=== PATIENT | female | born 1995 | race Caucasian/White ===

== ENCOUNTER 2019-03-01 23:29 | Emergency (ER) | payer OTHER ==
[2019-03-02] MEDS ORDERED: SODIUM CHLORIDE 1,000 ML IV STA (00:27)
[2019-03-02 00:36] VITALS: BP 121/80; PULSE 95; TEMP 98.5; BMI 34.4
[2019-03-02] MEDS ORDERED: ONDANSETRON 4 MG/2 ML VIAL IVPUSH ONE (00:46)
--- NOTE | 2019-03-02 00:54 | PDOC ---
Documentation entered by Jessica Sams SCRIBE, acting as scribe for Jennifer Abrams MD. Jennifer Abrams MD: This documentation has been prepared by the Latrell hu Xhesika, SCRIBE, under my direction and personally reviewed by me in its entirety. I confirm that the documentation accurately reflects all work, treatment, procedures, and medical decision making performed by me. History of Present Illness - General Chief Complaint: Nausea/Vomiting Stated Complaint: VOMITTING Time Seen by Provider: 03/02/19 00:16 History Source: Patient Exam Limitations: No Limitations - History of Present Illness Initial Comments: 03/02/19 00:30 The patient is a 23 year old female with no significant PMH of who presents to the emergency department for nausea, vomiting, diarrhea, and epigastric discomfort. The patient states she had 2 episodes of diarrhea earlier today, went to school at night, felt nauseous and endorsed 5 episodes of nbnb emesis. Patient notes she is on control and is currently on her menstrual period. The patient denies chest pain, shortness of breath, headache and dizziness. Denies fever, chills, cough, and constipation. Denies dysuria, frequency, urgency and hematuria. Allergies: NKDA Past History - Past Medical History Allergies/Adverse Reactions: Allergies Allergy/AdvReac Type Severity Reaction Status Date / Time No Known Allergies Allergy Verified 03/02/19 00:25 Home Medications: Ambulatory Orders Ondansetron [Zofran *Odt*] 4 mg SL TID PRN #21 od.tablet MDD 3 tabs 03/02/19 CVA: No COPD: No DVT: No - Psycho Social/Smoking Cessation Hx Smoking History: Never smoked Have you smoked in the past 12 months: No Information on smoking cessation initiated: No Hx Alcohol Use: No Drug/Substance Use Hx: No Review of Systems - Review of Systems Able to Perform ROS?: Yes Comments:: 03/02/19 00:30 GENERAL/CONSTITUTIONAL: No fever or chills. No weakness. HEAD, EYES, EARS, NOSE AND THROAT: No change in vision. No ear pain or discharge. No sore throat. CARDIOVASCULAR: No chest pain or shortness of breath. RESPIRATORY: No cough, wheezing, or hemoptysis. GASTROINTESTINAL: + nausea, vomiting, diarrhea. No constipation. GENITOURINARY: No dysuria, frequency, or change in urination. MUSCULOSKELETAL: + epigastric discomfort. No joint or muscle swelling or pain. No neck or back pain. SKIN: No rash NEUROLOGIC: No headache, vertigo, loss of consciousness, or change in strength/ sensation. ENDOCRINE: No increased thirst. No abnormal weight change. HEMATOLOGIC/LYMPHATIC: No anemia, easy bleeding, or history of blood clots. ALLERGIC/IMMUNOLOGIC: No hives or skin allergy. *Physical Exam - Vital Signs Last Vital Signs Temp Pulse Resp BP Pulse Ox 98.5 F 95 H 17 121/80 98 03/01/19 23:30 03/01/19 23:30 03/01/19 23:30 03/01/19 23:30 03/01/19 23:30 - Physical Exam Comments: 03/02/19 00:31 GENERAL: Awake, alert, and fully oriented, in no acute distress NECK: Normal ROM, supple, no lymphadenopathy, JVD, or masses LUNGS: Breath sounds equal, clear to auscultation bilaterally. No wheezes, and no crackles HEART: Regular rate and rhythm, normal S1 and S2, no murmurs, rubs or gallops ABDOMEN: + epigastric tenderness to deep palpation. Soft, normoactive bowel sounds. No guarding, no rebound. No masses EXTREMITIES: Normal range of motion, no edema. No clubbing or cyanosis. No cords, erythema, or tenderness NEUROLOGICAL: Cranial nerves II through XII grossly intact. SKIN: Warm, Dry, normal turgor, no rashes or lesions noted. ED Treatment Course - LABORATORY CBC & Chemistry Diagram: 03/02/19 01:00 03/02/19 01:09 Medical Decision Making - Medical Decision Making 03/02/19 00:47 differential diagnosis includes gastroenteritis, colitis, appendicitis, cholecystitis but she has a benign abd exam and pt will receive zofran and IV fluids - then re assess the pt 03/02/19 00:55 03/02/19 02:07 Patient feels much better and wants to go home She uses [facility] at [address] [place] [address] Prescription for Zofran will be sent to her pharmacy Discharge - Discharge Information Problems reviewed: Yes Clinical Impression/Diagnosis: Diarrhea Qualifiers: Diarrhea type: unspecified type Qualified Code(s): R19.7 - Diarrhea, unspecified Nausea and vomiting Qualifiers: Vomiting type: unspecified Vomiting Intractability: non-intractable Qualified Code(s): R11.2 - Nausea with vomiting, unspecified Condition: Good Disposition: HOME - Additional Discharge Information Prescriptions: Ondansetron [Zofran *Odt*] 4 mg SL TID PRN #21 od.tablet MDD 3 tabs PRN Reason: Nausea And/Or Vomiting - Follow up/Referral - Patient Discharge Instructions Patient Printed Discharge Instructions: DI for Diarrhea and Traveler's Diarrhea -- Adult, DI for Nausea -- Adult, DI for Vomiting -- Adult Additional Instructions: 1-please advance our diet as tolerated, Start with fluids and then add solid foods. 2- please return for any worsening symptoms - Post Discharge Activity
[2019-03-02] MEDS ORDERED: ONDANSETRON 4 MG/2 ML VIAL ONE (00:57)
[2019-03-02 01:27] LABS: BASO % 0.2 % (0-2.0); EOS % 0.6 % (0-4.5); HEMOGLOBIN 14.1 GM/dL (10.7-15.3); LYMPH % 9.4 % (8-40); MCH 28.2 pg (25.7-33.7); MCHC 33.6 g/dl (32.0-36.0); MEAN PLT VOLUME 8.8 fl (7.5-11.1); MONO % 6.9 % (3.8-10.2); NEUT % 82.9 % (42.8-82.8); PLATELET COUNT 335 K/MM3 (134-434); RBC 5.01 M/mm3 (3.60-5.2); RDW 14.9 % (11.6-15.6); WHITE BLOOD COUNT 13.2 K/mm3 (4.0-10.0)
[2019-03-02 01:31] LABS: EPI CELLS 3.1 /HPF (0-5/HPF); HYALINE CASTS 3 /lpf (0-8); PH,URINE 5.5 (5.0-8.0); URINE APPEARANCE CLEAR; URINE BACTERIA 35.9 /hpf (NEGATIVE); URINE BILIRUBIN NEGATIVE (NEGATIVE); URINE COLOR YELLOW; URINE GLUCOSE (UA) NEGATIVE (NEGATIVE); URINE KETONE NEGATIVE (NEGATIVE); URINE LEUK ESTERASE NEGATIVE (NEGATIVE); URINE NITRITE NEGATIVE (NEGATIVE); URINE PROTEIN NEGATIVE (NEGATIVE); URINE WBC 1 /hpf (0-5)
[2019-03-02 01:59] LABS: BILIRUBIN,TOTAL 0.6 mg/dL (0.2-1); BLOOD UREA NITROGEN 8.7 mg/dL (7-18); CREATININE 0.7 mg/dL (0.55-1.3); TOT PROT 7.5 g/dl (6.4-8.2)
[2019-03-02 02:12] LABS: URINE RBC 4.6 /hpf (0-4)
== END 2019-03-02 02:33 | disposition home or self-care (01) ==
LOC: JER 23:29
DX: R11.2 Nausea with vomiting, unspecified (principal); R19.7 Diarrhea, unspecified
CPT/HCPCS: 36415; 80053; 81003; 83690; 84703; 85025; 99282-25; J7030

== ENCOUNTER 2022-02-02 20:28 | Emergency (ER) | payer BC, OTHER ==
[2022-02-02 20:37] VITALS: BP 121/78; PULSE 93; RESP 19; TEMP 97.7; BMI 34.4
[2022-02-02] MEDS ORDERED: ONDANSETRON 4 MG/2 ML VIAL IVPUSH ONE (21:48)
[2022-02-02] MEDS ORDERED: SODIUM CHLORIDE 0.9% 500 ML INFUS.BAG IV ONE (21:48)
[2022-02-02] MEDS ORDERED: ACETAMINOPHEN 1000 MG/100 ML BAG IVPB ONE (21:48)
[2022-02-02] MEDS ORDERED: ONDANSETRON 4 MG/2 ML VIAL ONE (21:59)
[2022-02-02] MEDS ORDERED: ACETAMINOPHEN INJECTION 100 ML IVPB ONE (21:59)
[2022-02-02 22:14] LABS: BASO % 0.6 % (0-2.0); EOS % 0.9 % (0-4.5); HEMATOCRIT 42.3 % (32.4-45.2); HEMOGLOBIN 13.8 GM/dL (10.7-15.3); LYMPH % 33.8 % (8-40); MCH 27.4 pg (25.7-33.7); MCHC 32.6 g/dl (32.0-36.0); MEAN CELL VOLUME 83.9 fl (80-96); MEAN PLT VOLUME 8.8 fl (7.5-11.1); MONO % 8.9 % (3.8-10.2); NEUT % 55.8 % (42.8-82.8); PLATELET COUNT 435 10^3/uL (134-434); RBC 5.04 M/mm3 (3.60-5.2); RDW 14.2 % (11.6-15.6); WHITE BLOOD COUNT 9.9 K/mm3 (4.0-10.0)
[2022-02-02 22:17] LABS: EPI CELLS >36 /uL (0-25.1); HYALINE CASTS 2 /uL (0-3.1); PH,URINE 5.5 (5.0-8.0); URINE APPEARANCE CLOUDY; URINE BACTERIA 774 /uL (0-1359); URINE BILIRUBIN NEGATIVE (NEGATIVE); URINE COLOR YELLOW; URINE GLUCOSE (UA) NEGATIVE (NEGATIVE); URINE KETONE TRACE (NEGATIVE); URINE LEUK ESTERASE TRACE (NEGATIVE); URINE NITRITE NEGATIVE (NEGATIVE); URINE PROTEIN NEGATIVE (NEGATIVE); URINE RBC 12 /uL (0-23.9); URINE WBC 27 /uL (0-25.8)
[2022-02-02 22:44] LABS: CHLORIDE 108 mmol/L (98-107); SODIUM 139 mmol/L (136-145)
[2022-02-02 22:45] LABS: BLOOD UREA NITROGEN 10.2 mg/dL (7-18); CALCIUM 9.4 mg/dL (8.5-10.1); CO2 26 mmol/L (21-32); LIPASE 39 U/L (73-393)
[2022-02-02 22:46] LABS: ALBUMIN 3.6 g/dl (3.4-5.0); GLUCOSE,RANDOM 105 mg/dL (74-106)
[2022-02-02 22:49] LABS: CREATININE 0.8 mg/dL (0.55-1.3); SGOT/AST 76 U/L (15-37)
[2022-02-02 22:50] LABS: BILIRUBIN,TOTAL 0.5 mg/dL (0.2-1); TOT PROT 7.8 g/dl (6.4-8.2)
[2022-02-02 22:51] LABS: ALK PHOS 110 U/L (45-117)
[2022-02-02 22:56] LABS: ANION GAP 6 MMOL/L (8-16); SGPT/ALT 23 U/L (13-61)
[2022-02-03 01:06] LABS: CALCIUM 9.1 mg/dL (8.5-10.1)
[2022-02-03 01:07] LABS: BLOOD UREA NITROGEN 9.5 mg/dL (7-18)
[2022-02-03 01:11] LABS: CREATININE 0.6 mg/dL (0.55-1.3)
== END 2022-02-03 02:30 | disposition home or self-care (01) ==
LOC: JER 20:28
PROC: 3E0333Z Introduction of Anti-inflammatory into Peripheral Vein, Percutaneous Approach (ICD-10-PCS; principal; 2022-02-02)
PROC: 3E033GC Introduction of Other Therapeutic Substance into Peripheral Vein, Percutaneous Approach (ICD-10-PCS; 2022-02-02)
DX: R10.2 Pelvic and perineal pain (principal); N30.00 Acute cystitis without hematuria
CPT/HCPCS: 36415; 76830-TC; 80048; 80053; 81003; 83690; 84703; 85025; 87086; 87529; 99284-25

== ENCOUNTER → 2023-12-17 | Day surgery (SDC) | payer OTHER | END | disposition home or self-care (01) | LOC: JRADUS-SUR 08:10 | PROVIDERS: ATTEND Obstetrics & Gynecology | PROC: 0H9V3ZX Drainage of Bilateral Breast, Percutaneous Approach, Diagnostic (ICD-10-PCS; principal; 2023-12-17) | DX: D24.2 Benign neoplasm of left breast (principal); D24.1 Benign neoplasm of right breast | CPT/HCPCS: 19083; 19084; 87899; 88305-TC; A4648 ==

== ENCOUNTER 2024-01-14 20:06 | Emergency (ER) | payer OTHER ==
[2024-01-14 20:11] VITALS: BP 126/79; PULSE 65; RESP 18; TEMP 98.3; BMI 31.0
[2024-01-14] MEDS ORDERED: IBUPROFEN 600 MG TABLET (FP) PO ONE (21:04)
[2024-01-14] MEDS: IBUPROFEN 600 MG TABLET (FP) PO ONE (21:05)
== END 2024-01-14 21:59 | disposition home or self-care (01) ==
LOC: JERFT 20:06
DX: R59.0 Localized enlarged lymph nodes (principal)
CPT/HCPCS: 99283-25

== ENCOUNTER 2024-01-21 09:40 | Day surgery (SDC) | payer OTHER ==
[2024-01-14 14:29] VITALS: BMI 31.0
[2024-01-21 09:59] VITALS: RESP 18
[2024-01-21 11:17] VITALS: TEMP 97.7
[2024-01-21 11:19] VITALS: BP 102/53; PULSE 70
== END 2024-01-21 11:34 | disposition home or self-care (01) ==
LOC: FASU-ENDO 09:40
PROVIDERS: ATTEND Internal Medicine Gastroenterology
PROC: 0DB68ZX Excision of Stomach, Via Natural or Artificial Opening Endoscopic, Diagnostic (ICD-10-PCS; 2024-01-21)
PROC: 0DB48ZX Excision of Esophagogastric Junction, Via Natural or Artificial Opening Endoscopic, Diagnostic (ICD-10-PCS; 2024-01-21)
PROC: 0DB98ZX Excision of Duodenum, Via Natural or Artificial Opening Endoscopic, Diagnostic (ICD-10-PCS; principal; 2024-01-21 10:48)
DX: K29.50 Unspecified chronic gastritis without bleeding (principal); K20.90 Esophagitis, unspecified without bleeding; R10.13 Epigastric pain
CPT/HCPCS: 81025; 88305-TC; 88342-TC